=== PATIENT | female | born 1935 | race Caucasian/White ===

== ENCOUNTER 2022-04-05 08:59 | Emergency (ER) | payer MEDICARE ==
[2022-04-05 09:53] LABS: HEMOGLOBIN 14.8 gm/dl (12.3-15.3); RED BLOOD COUNT 4.54 M/UL (4.00-5.10); WHITE BLOOD COUNT 8.3 K/UL (4.5-11.0)
[2022-04-05 10:23] LABS: BUN/CREATININE RATIO 18 (0-10)
[2022-04-05] MEDS ORDERED: MELOXICAM7.5 MG PO (13:02)
== END 2022-04-05 13:25 | disposition home or self-care (01) ==
LOC: ER1 08:59
PROVIDERS: Student in an Organized Health Care Education/Training Program
DX: M25.551 Pain in right hip (principal); I10 Essential (primary) hypertension; J45.909 Unspecified asthma, uncomplicated; W19.XXXA Unspecified fall, initial encounter; Y92.009 Unspecified place in unspecified non-institutional (private) residence as the place of occurrence of the external cause
CPT/HCPCS: 73502; 73700; 80053; 81001; 83605; 83690; 85025; 96374; 99284; J2270; Q9967